=== PATIENT | male | born 1980 | race Caucasian/White ===

== ENCOUNTER 2022-12-30 15:13 | Emergency (ER) | payer MEDICAID ==
[~2022-12-30] VITALS: Ht 180.3 cm; Wt 88.0 kg
[2022-12-30 15:52] VITALS: O2SAT 99
[2022-12-30] MEDS ORDERED: CEPH500C2 MT (17:44)
[2022-12-30 18:23] VITALS: BP 144/78; PULSE 99; RESP 18; TEMP 98.7
== END 2022-12-30 18:24 | disposition home or self-care (01) ==
LOC: ER 15:13
DX: S30.860A Insect bite (nonvenomous) of lower back and pelvis, initial encounter (principal); L03.317 Cellulitis of buttock; E11.9 Type 2 diabetes mellitus without complications; Z98.890 Other specified postprocedural states; W57.XXXA Bitten or stung by nonvenomous insect and other nonvenomous arthropods, initial encounter; Y93.89 Activity, other specified; Y92.89 Other specified places as the place of occurrence of the external cause; Y99.8 Other external cause status
CPT/HCPCS: 99283